=== PATIENT | male | born 1950 | race Caucasian/White ===

== ENCOUNTER 2018-10-07 11:15 | Outpatient (CLI) | payer MEDICARE, OTHER ==
--- NOTE | 2018-10-07 13:46 | RAD ---
Cervical spine 5 views HISTORY: Neck pain. FINDINGS: Vertebral body heights and alignment are maintained. Mild disc space narrowing at the C4-5 level. Mild to moderate osteophytosis throughout the vertebral bodies and facets. No significant osseous stenosis of the neural foramina is apparent. Cervicothoracic junction is intact. No acute fra cture, dislocation, or aggressive osseous erosions. IMPRESSION: [id number] degenerative changes cervical spine.
== END 2018-10-07 11:16 | disposition home or self-care (01) ==
LOC: MADRAD 11:15
PROVIDERS: ATTEND Family Medicine
DX: M54.2 Cervicalgia (principal); M47.812 Spondylosis without myelopathy or radiculopathy, cervical region
CPT/HCPCS: 72050

== ENCOUNTER 2018-11-29 07:15 | Emergency (ER) | payer MEDICARE ==
[2018-11-29] MEDS ORDERED: Acetaminophen 500 MG TAB ONE (08:05)
[2018-11-29] MEDS ORDERED: Ibuprofen 800 MG TAB ONE (08:05)
--- NOTE | 2018-11-29 08:25 | RAD ---
RADIOGRAPH LEFT ANKLE 3 VIEWS: Date: 11/29/18 HISTORY: 68-year-old male with traumatic left ankle pain after fall. FINDINGS: Ankle mortise is congruent. No acute fracture. Diffuse soft tissue edema. Talar dome is maintained. M ild DJD of ankle mortise. High grade DJD at first TMT joint. IMPRESSION: 1. No acute fracture. 2. Diffuse soft tissue edema. POS: [facility]
== END 2018-11-29 08:10 | disposition home or self-care (01) ==
LOC: MADERS 07:15
DX: M25.572 Pain in left ankle and joints of left foot (principal); X50.1XXA Overexertion from prolonged static or awkward postures, initial encounter

== ENCOUNTER 2019-10-19 11:17 | Emergency (ER) | payer MEDICARE | END 2019-10-19 12:04 | disposition home or self-care (01) | LOC: MADERS 11:17 | DX: T63.441A Toxic effect of venom of bees, accidental (unintentional), initial encounter (principal); L97.929 Non-pressure chronic ulcer of unspecified part of left lower leg with unspecified severity | CPT/HCPCS: 99283 ==